=== PATIENT | female | born 1940 | race Two or more races ===

== ENCOUNTER 2018-02-15 14:19 | Emergency (ER) | payer OTHER ==
[~2018-02-15] VITALS: Ht 154.9 cm; Wt 72.6 kg
[2018-02-15] MEDS ORDERED: CARDIZEM30 MG (14:57)
[2018-02-15] MEDS ORDERED: CELEBREX200MG (14:57)
[2018-02-15] MEDS ORDERED: HYZAAR 100-12.1 EACH PO (14:57)
[2018-02-15] MEDS ORDERED: COREG CR10 MG PO (14:57)
[2018-02-15] MEDS ORDERED: LEVAQUIN500 MG (14:58)
== END 2018-02-15 20:48 | disposition home or self-care (01) ==
LOC: ER 14:19
DX: J45.998 Other asthma (principal)

== ENCOUNTER 2022-04-21 11:01 | Emergency (ER) | payer OTHER ==
[~2022-04-21] VITALS: Ht 162.6 cm; Wt 81.6 kg
[~2022-04-21 11:01] MED LIST: CARDIZEM30 MG; CELEBREX200MG; COREG CR10 MG PO; HYZAAR 100-12.1 EACH PO; LEVAQUIN500 MG
== END 2022-04-21 16:41 | disposition home or self-care (01) ==
LOC: ER 11:01
DX: M62.830 Muscle spasm of back (principal); I10 Essential (primary) hypertension; Z88.0 Allergy status to penicillin; M51.37 Other intervertebral disc degeneration, lumbosacral region; M85.88 Other specified disorders of bone density and structure, other site

== ENCOUNTER 2022-07-22 11:35 | Emergency (ER) | payer OTHER ==
[~2022-07-22] VITALS: Ht 167.6 cm; Wt 104.3 kg
== END 2022-07-22 20:24 | disposition home or self-care (01) ==
LOC: ER 11:35
DX: R10.13 Epigastric pain (principal); I10 Essential (primary) hypertension; Z88.0 Allergy status to penicillin